=== PATIENT | female | born 1970 | race American Indian/Alaskan Native ===

== ENCOUNTER 2016-07-13 14:03 | Inpatient (IN) | payer SELFPAY ==
[2016-07-13 15:52] LABS: Bilirubin,Urine NEG (Negative); Blood,Urine SM (Negative); Ketones,Urine 80 mg/dL (Negative); Leukocyte Esterase,Urine NEG (Negative); Nitrite,Urine NEG (Negative); Urobilinogen,Urine < 2.0 mg/dL (<2.0)
[2016-07-13 16:03] LABS: Protein,Urine >500 mg/dL (Negative); Trichomonas,Urine Present /HPF
[2016-07-13 16:18] LABS: Basophils % (Auto) 0.2 % (0.0-1.8); Hematocrit 44.7 % (30.3-42.9); Hemoglobin 15.2 gm/dl (10.1-14.3); Mean Corpuscular HGB Conc 34 % (30-34); Mean Corpuscular Hemoglobin 34 pg (28-32); Mean Corpuscular Volume 101 fl (79-97); Platelet Count 252 K/mm3 (140-440); Red Blood Count 4.44 M/mm3 (3.65-5.03); Red Cell Distribution Width 15.9 % (13.2-15.2); White Blood Count 7.2 K/mm3 (4.5-11.0)
[2016-07-13 16:41] LABS: Alanine Aminotransferase 64 units/L (7-56); Alkaline Phosphatase 90 units/L (35-129); Blood Urea Nitrogen 9 mg/dL (7-17); Calcium 9.7 mg/dL (8.4-10.2); Carbon Dioxide 21 mmol/L (22-30); Glucose 264 mg/dL (65-100); Total Protein 8.9 g/dL (6.3-8.2)
[2016-07-13 16:42] LABS: Anion Gap 28 mmol/L; Chloride 92.2 mmol/L (98-107); Potassium 4.2 mmol/L (3.6-5.0); Sodium 137 mmol/L (137-145)
[2016-07-13 19:23] LABS: Albumin 4.8 g/dL (3.9-5); Albumin/Globulin Ratio 1.2 %
[2016-07-13 20:00] LABS: Lipase 781 units/L (13-60)
[2016-07-13] MEDS ORDERED: ZOFRAN IV ONE (22:37)
[2016-07-13] MEDS ORDERED: NACL 0.9% 1000 ML 1,000 ML IV ONE (22:37)
[2016-07-13] MEDS ORDERED: DILAUDID IV ONE (22:38)
--- NOTE | 2016-07-13 22:39 | Emergency Department Report ---
ED Abdominal Pain HPI - General Chief Complaint: Abdominal Pain Stated Complaint: ABD PAIN Time Seen by Provider: 07/13/16 22:36 Source: patient Mode of arrival: Ambulatory Limitations: No Limitations - History of Present Illness Initial Comments: This is a pleasant 46-year-old female who endorses a three-day history of upper abdominal pain that radiates to her back. She did have nausea vomiting associated with this as well. She has had some loose stools over the last 3 days but this has not been a major problem. She has had anorexia associated with this as well. She denies having similar pains in the past. Patient does endorse alcohol daily. 5. She also endorses history of cholecystectomy 2 years ago due to gallbladders tones. She denies any fevers or weakness associated with this. She has had difficulty sleeping due to the pain. She has not noted anything that really makes her pain better or worse. - Related Data Home Medications Medication Instructions Recorded Confirmed Last Taken Unobtainable 07/14/16 07/14/16 Unknown Allergies Allergy/AdvReac Type Severity Reaction Status Date / Time No Known Allergies Allergy Unverified 12/27/12 11:46 ED Review of Systems ROS: Stated complaint: ABD PAIN Other details as noted in HPI Comment: All other systems reviewed and negative Constitutional: denies: chills, fever Eyes: denies: eye pain, eye discharge, vision change ENT: denies: ear pain, throat pain Respiratory: denies: cough, shortness of breath, wheezing Cardiovascular: denies: chest pain, palpitations Endocrine: no symptoms reported Gastrointestinal: abdominal pain, nausea, vomiting. denies: diarrhea Genitourinary: denies: urgency, dysuria, discharge Musculoskeletal: denies: back pain, joint swelling, arthralgia Skin: denies: rash, lesions Neurological: denies: headache, weakness, paresthesias Psychiatric: denies: anxiety, depression Hematological/Lymphatic: denies: easy bleeding, easy bruising ED Past Medical Hx - Past Medical History Hx Hypertension: Yes Hx Diabetes: Yes (NIDDM) Additional medical history: thyroid - Surgical History Hx Cholecystectomy: Yes Additional Surgical History: ovarian cyst - Social History Smoking Status: Current Every Day Smoker Substance Use Type: Alcohol - Medications Home Medications: Home Medications Medication Instructions Recorded Confirmed Last Taken Type Unobtainable 07/14/16 07/14/16 Unknown History ED Physical Exam - General Limitations: No Limitations General appearance: alert, in distress (due to pain) - Head Head exam: Present: atraumatic, normocephalic - Eye Eye exam: Present: normal appearance, EOMI. Absent: scleral icterus - ENT ENT exam: Present: normal exam, normal orophraynx, mucous membranes moist - Neck Neck exam: Present: normal inspection, full ROM. Absent: meningismus, lymphadenopathy - Respiratory Respiratory exam: Present: normal lung sounds bilaterally. Absent: respiratory distress, wheezes, rales - Cardiovascular Cardiovascular Exam: Present: regular rate, normal rhythm. Absent: systolic murmur, diastolic murmur, rubs, gallop - GI/Abdominal GI/Abdominal exam: Present: soft, tenderness (upper abdomen specifically in the epigastric region.), guarding (mild epigastric), normal bowel sounds. Absent: organomegaly, pulsatile mass - Extremities Exam Extremities exam: Present: normal inspection, other (equal distal pedal pulses bilaterally). Absent: tenderness, pedal edema, calf tenderness - Back Exam Back exam: Present: normal inspection. Absent: tenderness, CVA tenderness (R), CVA tenderness (L) - Neurological Exam Neurological exam: Present: alert, oriented X3 - Psychiatric Psychiatric exam: Present: normal affect, normal mood - Skin Skin exam: Present: warm, dry, intact, normal color. Absent: rash ED Course Vital Signs 07/13/16 07/13/16 07/14/16 14:29 22:54 01:10 Temperature 98.4 F Pulse Rate 112 H 82 100 H Respiratory 20 16 16 Rate Blood Pressure 164/103 Blood Pressure 154/102 169/117 [Left] O2 Sat by Pulse 99 98 Oximetry 07/14/16 01:37 Temperature Pulse Rate Respiratory 16 Rate Blood Pressure Blood Pressure 158/95 [Left] O2 Sat by Pulse Oximetry - Reevaluation(s) Reevaluation #1: 07/14/16 06:00 Lab studies are noted with elevated lipase. LFTs have some mild elevation as well. Bilirubin is normal however. Based on the history since I suspect pancreatitis of alcohol origin. I suspect that her uriel lipase was likely 2 days ago. I feel that she is likely cooling down at this point. I did suggest that she stay in the hospital for nothing by mouth and continued observation. Her abdomen is tender but nonsurgical for me here at a low suspicion for concerning pathology and did not order CT is study at this time. I did speak with Dr. Nathan from hospitalist service for admission. He was agreeable with this plan. She was given IV fluids here as well as pain and nausea medication. She did have significant improvement with these interventions. ED Medical Decision Making - Lab Data Result diagrams: 07/13/16 16:06 07/13/16 16:06 Critical care attestation.: If time is entered above; I have spent that time in minutes in the direct care of this critically ill patient, excluding procedure time. ED Disposition Clinical Impression: Pancreatitis, alcoholic, acute Qualifiers: Acute pancreatitis complication: unspecified Qualified Code(s): K85.20 - Alcohol induced acute pancreatitis without necrosis or infection Disposition: OP ADMITTED IP TO THIS HOSP Is pt being admited?: Yes Does the pt Need Aspirin: No Condition: Stable Time of Disposition: 01:08
[2016-07-14] MEDS ORDERED: APRESOLINE IV PRN (02:47)
[2016-07-14] MEDS ORDERED: ZOFRAN IV PRN (02:47)
--- NOTE | 2016-07-14 02:52 | History and Physical Report ---
History of Present Illness Date of examination: 07/14/16 Chief complaint: Abdominal pain History of present illness: Patient is a 46-year-old woman with history of cholecystectomy, tobacco dependency, alcohol abuse, type 2 diabetes mellitus and hypertension who presents with sudden onset of acute sharp epigastric abdominal pain radiating to the back times x 3 days ago associated with nausea, vomiting and diarrhea. Her last alcoholic drink was 3 days ago, she couldn't hold anything down. She usually drinks a pint of vodka a day. Past History Past Medical History: other (as hpi) Past Surgical History: cholecystectomy, bowel surgery Social history: smoking, alcohol abuse, full code. denies: prescription drug abuse, IV drug use Family history: diabetes (father), hypertension (mother) Medications and Allergies Allergies Allergy/AdvReac Type Severity Reaction Status Date / Time No Known Allergies Allergy Unverified 12/27/12 11:46 Home Medications Medication Instructions Recorded Confirmed Last Taken Type Unobtainable 07/14/16 07/14/16 Unknown History Active Meds: Active Medications Heparin Sodium (Porcine) (Heparin) 5,000 unit SUB-Q Q12HR TIM Review of Systems All systems: negative (as HPI and all other ROS reviewed and negative.) Exam - Physical Exam Narrative exam: GEN: WDWN, NAD, AWAKE, ALERT, ORIENTATED 3 HEENT: NCAT, PERRL, EOMI, OP CLEAR NECK: SUPPLE, NO THYROMEGALY, NO JVD, NO LAD CVS: Regular tachycardia, NORMAL S1S2 LUNGS/CHEST: CTA B, NORMAL CHEST EXPANSION B, GOOD AIR ENTRY B ABD: SOFT, EPIGASTRIC TENDERNESS WITHOUT DISTENTION GBS, NO REBOUND OR GUARDING EXT/SKIN: NO SIGNIFICANT EDEMA OR RASH MSK: FROM X 4 EXTREMITIES NEURO: CN 2-12 GROSSLY INTACT, NO new FOCAL DEFICITS PSY: CALM - Constitutional Vitals: Temp Pulse Resp BP Pulse Ox 98.4 F 100 H 16 158/95 98 07/13/16 14:29 07/14/16 01:10 07/14/16 01:37 07/14/16 01:37 07/13/16 22:54 Results - Labs CBC & Chem 7: 07/13/16 16:06 07/13/16 16:06 Labs: Abnormal lab results 07/13/16 07/13/16 07/13/16 Range/Units 14:50 16:06 16:06 Hgb 15.2 H (10.1-14.3) gm/dl Hct 44.7 H (30.3-42.9) % MCV 101 H (79-97) fl MCH 34 H (28-32) pg RDW 15.9 H (13.2-15.2) % Lymph % (Auto) 6.0 L (13.4-35.0) % [place] % (Auto) 7.4 H (0.0-7.3) % Lymph # 0.4 L (1.2-5.4) K/mm3 Seg Neutrophils % 86.4 H (40.0-70.0) % Chloride 92.2 L (98-107) mmol/L Carbon Dioxide 21 L (22-30) mmol/L Creatinine 0.5 L (0.7-1.2) mg/dL Glucose 264 H (65-100) mg/dL AST 70 H (5-40) units/L ALT 64 H (7-56) units/L Total Protein 8.9 H (6.3-8.2) g/dL Lipase 781 H (13-60) units/L Urine WBC (Auto) 10.0 H (0.0-6.0) /HPF U Epithel Cells (Auto) 15.0 H (0-13.0) /HPF Assessment and Plan Patient is a 46-year-old woman with history of cholecystectomy, tobacco dependency, alcohol abuse, type 2 diabetes mellitus and hypertension who presents with sudden onset of acute sharp epigastric abdominal pain radiating to the back times x 3 days ago associated with nausea, vomiting and diarrhea. Her last alcoholic drink was 3 days ago, she couldn't hold anything down. She usually drinks a pint of vodka a day. -Acute alcohol pancreatitis: bowel rest, ivf, pain med, ciwa, thiamine -Accelerated hypertension: iv hydralazine prn -NIDDM: ssi -Urine trichomonas: flagyl po x 1 when she tolerate po intake -dvt prophylaxis: sc heparin
[2016-07-14] MEDS ORDERED: ATIVAN IV PRN ×3 (02:57)
[2016-07-14] MEDS ORDERED: D50W (25GM) IV PRN (02:57)
[2016-07-14] MEDS ORDERED: FLAGYL PO ONE (03:01)
[2016-07-14] MEDS ORDERED: FLAGYL ONE (03:46)
[2016-07-14] MEDS: MORPHINE IV PRN ×2 (04:51→09:13)
[2016-07-14] MEDS: HEPARIN SUB-Q SCH ×2 (09:12→22:00)
[2016-07-14] MEDS: PROTONIX IV SCH (09:15)
--- NOTE | 2016-07-14 11:57 | Progress Note ---
Assessment and Plan Assessment and plan: 1. Acute alcohol-induced pancreatitis. Continue bowel rest. Advance diet slowly with clear liquids today. Continue IV fluid hydration. Pain control. Continue to follow serial lipase levels. 2. EtOH abuse. Continue CIWA protocol. Patient has been counseled on alcohol cessation. 3. Accelerated hypertension. Continue antihypertensives medications. Continue IV hydralazine when necessary. 4. Diabetes mellitus type 2. Continue Accu-Cheks and sliding scale. 5. Urine Trichomonas. Patient will receive Flagyl by mouth 1 when she can tolerate by mouth intake. 6. DVT prophylaxis. Continue heparin. History Interval history: 46-year-old female admitted with abdominal pain secondary to alcohol-induced pancreatitis. No new issues overnight. Hospitalist Physical - Constitutional Vitals: Temp Pulse Resp BP Pulse Ox 98.2 F 95 H 18 170/100 100 07/14/16 08:30 07/14/16 09:14 07/14/16 08:30 07/14/16 09:14 07/14/16 08:30 General appearance: Present: no acute distress, well-nourished - EENT Eyes: Present: PERRL, EOM intact ENT: hearing intact, clear oral mucosa, dentition normal - Neck Neck: Present: supple, normal ROM - Respiratory Respiratory effort: normal Respiratory: bilateral: CTA - Cardiovascular Rhythm: regular Heart Sounds: Present: S1 & S2. Absent: gallop, rub - Extremities Extremities: no ischemia, No edema, Full ROM - Abdominal General gastrointestinal: soft, tender, non-distended, normal bowel sounds Localized gastrointestinal: tender: epigastric periumbilical (mild) - Integumentary Integumentary: Present: clear, warm, dry - Neurologic Neurologic: CNII-XII intact, moves all extremities Results - Labs CBC & Chem 7: 07/13/16 16:06 07/13/16 16:06 Labs: Laboratory Last Values WBC 7.2 K/mm3 (4.5-11.0) 07/13/16 16:06 RBC 4.44 M/mm3 (3.65-5.03) 07/13/16 16:06 Hgb 15.2 gm/dl (10.1-14.3) H 07/13/16 16:06 Hct 44.7 % (30.3-42.9) H 07/13/16 16:06 MCV 101 fl (79-97) H 07/13/16 16:06 MCH 34 pg (28-32) H 07/13/16 16:06 MCHC 34 % (30-34) 07/13/16 16:06 RDW 15.9 % (13.2-15.2) H 07/13/16 16:06 Plt Count 252 K/mm3 (140-440) 07/13/16 16:06 Lymph % (Auto) 6.0 % (13.4-35.0) L 07/13/16 16:06 [place] % (Auto) 7.4 % (0.0-7.3) H 07/13/16 16:06 Eos % (Auto) 0.0 % (0.0-4.3) 07/13/16 16:06 Baso % (Auto) 0.2 % (0.0-1.8) 07/13/16 16:06 Lymph # 0.4 K/mm3 (1.2-5.4) L 07/13/16 16:06 [place] # 0.5 K/mm3 (0.0-0.8) 07/13/16 16:06 Eos # 0.0 K/mm3 (0.0-0.4) 07/13/16 16:06 Baso # 0.0 K/mm3 (0.0-0.1) 07/13/16 16:06 Seg Neutrophils % 86.4 % (40.0-70.0) H 07/13/16 16:06 Seg Neutrophils # 6.2 K/mm3 (1.8-7.7) 07/13/16 16:06 Sodium 137 mmol/L (137-145) 07/13/16 16:06 Potassium 4.2 mmol/L (3.6-5.0) 07/13/16 16:06 Chloride 92.2 mmol/L (98-107) L 07/13/16 16:06 Carbon Dioxide 21 mmol/L (22-30) L 07/13/16 16:06 Anion Gap 28 mmol/L 07/13/16 16:06 BUN 9 mg/dL (7-17) 07/13/16 16:06 Creatinine 0.5 mg/dL (0.7-1.2) L 07/13/16 16:06 Estimated GFR > 60 ml/min 07/13/16 16:06 BUN/Creatinine Ratio 18.00 % 07/13/16 16:06 Glucose 264 mg/dL (65-100) H 07/13/16 16:06 POC Glucose 195 (70-105) H 07/14/16 06:27 Calcium 9.7 mg/dL (8.4-10.2) 07/13/16 16:06 Total Bilirubin 1.0 mg/dL (0.1-1.2) 07/13/16 16:06 AST 70 units/L (5-40) H 07/13/16 16:06 ALT 64 units/L (7-56) H 07/13/16 16:06 Alkaline Phosphatase 90 units/L (35-129) 07/13/16 16:06 Total Protein 8.9 g/dL (6.3-8.2) H 07/13/16 16:06 Albumin 4.8 g/dL (3.9-5) 07/13/16 16:06 Albumin/Globulin Ratio 1.2 % 07/13/16 16:06 Lipase 781 units/L (13-60) H 07/13/16 16:06 Urine Color Yellow (Yellow) 07/13/16 14:50 Urine Turbidity Clear (Clear) 07/13/16 14:50 Urine pH 5.0 (5.0-7.0) 07/13/16 14:50 Urine Protein >500 mg/dL (Negative) 07/13/16 14:50 Urine Glucose (UA) >=500 mg/dL (Negative) 07/13/16 14:50 Urine Ketones 80 mg/dL (Negative) 07/13/16 14:50 Urine Blood Sm (Negative) 07/13/16 14:50 Urine Nitrite Neg (Negative) 07/13/16 14:50 Ur Reducing Substances Not Reportable 07/13/16 14:50 Urine Bilirubin Neg (Negative) 07/13/16 14:50 Urine Ictotest Not Reportable 07/13/16 14:50 Urine Urobilinogen < 2.0 mg/dL (<2.0) 07/13/16 14:50 Ur Leukocyte Esterase Neg (Negative) 07/13/16 14:50 Urine WBC (Auto) 10.0 /HPF (0.0-6.0) H 07/13/16 14:50 Urine RBC (Auto) 8.0 /HPF (0.0-6.0) 07/13/16 14:50 U Epithel Cells (Auto) 15.0 /HPF (0-13.0) H 07/13/16 14:50 Urine Trichomonas Present /HPF 07/13/16 14:50 Urine HCG, Qual Negative (Negative) 07/13/16 14:50
[2016-07-14] MEDS: NOVOLOG SUB-Q SCH ×2 (12:06→17:45)
[2016-07-14] MEDS: VITAMIN B-1 100 MG in NACL 0.9% 50 ML IV SCH (12:10)
--- NOTE | 2016-07-15 00:27 | Admit Criteria Form ---
Admission Criteria Documentation: PANCREATITIS Clinical Indications for Admission to Inpatient Care (Place 'X' for any and all applicable criteria): Admission is indicated for 1 or more of the following (1)(2)(3)(4): [ ]I. Acute pancreatitis[A] as indicated by 2 or MORE of the following: [ ]a) Abdominal pain (eg, epigastric, left upper quadrant) [ ]b) Serum amylase or serum lipase greater than 3 times the upper limit of normal [ ]c) Characteristic findings from abdominal imaging (eg, pancreatic inflammation, pancreatic necrosis, peripancreatic fluid collection)[B] [X ]II. Pancreatitis (acute or chronic ) requiring inpatient care as indicated by 1 or more of the following [ ]a) Inability to maintain oral hydration Hypoxemia [ ]b) Evidence of infection (eg, fever, peripancreatic abscess) [X ]c) Severe pain requiring acute inpatient management [ ]d) Hemodynamic instability [ ]e) Hypoxemia [ ]f) Acute renal failure [ ]g) Severe electrolyte abnormalities Extended stay beyond goal length of stay may be needed for (1)(11) [ ]a) Severe acute pancreatitis (10)(19) [ ]b) Persistent symptoms, ascites, or pleural effusion [ ]c) Abdominal compartment syndrome (10) [ ]d) Late complications [ ]e) Gallstones in gallbladder [ ]f) Acute renal failure (27) The original [employer] content created by [employer] has been revised. The portions of the content which have been revised are identified through the use of italic text or in bold,and [employer] has neither reviewed nor approved the modified material.All other unmodified content is copyright [facility] Please see references footnoted in the original [facility] edition 2016 Admission Criteria Met: Yes
[2016-07-15] MEDS: MORPHINE IV PRN ×4 (00:45→23:31)
[2016-07-15 05:35] LABS: Basophils % (Auto) 0.4 % (0.0-1.8); Eosinophils % (Auto) 0.7 % (0.0-4.3); Hematocrit 36.6 % (30.3-42.9); Mean Corpuscular HGB Conc 33 % (30-34); Mean Corpuscular Hemoglobin 34 pg (28-32); Mean Corpuscular Volume 103 fl (79-97); Platelet Count 188 K/mm3 (140-440); Red Blood Count 3.56 M/mm3 (3.65-5.03); Red Cell Distribution Width 16.3 % (13.2-15.2)
[2016-07-15 05:57] LABS: Alanine Aminotransferase 36 units/L (7-56); Albumin 3.4 g/dL (3.9-5); Alkaline Phosphatase 63 units/L (35-129); Anion Gap 21 mmol/L; Bilirubin,Total 0.7 mg/dL (0.1-1.2); Blood Urea Nitrogen 6 mg/dL (7-17); Calcium 8.8 mg/dL (8.4-10.2); Carbon Dioxide 21 mmol/L (22-30); Chloride 100.3 mmol/L (98-107); Glucose 97 mg/dL (65-100); Lipase 136 units/L (13-60); Potassium 3.6 mmol/L (3.6-5.0); Sodium 139 mmol/L (137-145); Total Protein 6.8 g/dL (6.3-8.2)
[2016-07-15] MEDS: NOVOLOG SUB-Q SCH ×4 (06:00→18:52)
[2016-07-15] MEDS: NACL 0.9% 1000 ML 1,000 ML IV SCH ×2 (07:41→18:08)
[2016-07-15] MEDS: VITAMIN B-1 100 MG in NACL 0.9% 50 ML IV SCH (10:00)
--- NOTE | 2016-07-15 10:01 | Progress Note ---
Assessment and Plan Assessment and plan: 1. Acute alcohol-induced pancreatitis. Continue bowel rest. Advance diet slowly starting with clear liquids then to full. Continue IV fluid hydration. Pain control. Continue to follow serial lipase levels. If patient tolerates diet, anticipate discharge in a.m. 2. EtOH abuse. Continue CIWA protocol. Patient has been counseled on alcohol cessation. 3. Accelerated hypertension. Add labetalol. Continue IV hydralazine when necessary. 4. Diabetes mellitus type 2. Continue Accu-Cheks and sliding scale. 5. Urine Trichomonas. Patient will receive Flagyl by mouth 1 when she can tolerate by mouth intake. 6. DVT prophylaxis. Continue heparin. History Interval history: 46-year-old female admitted with abdominal pain secondary to alcohol-induced pancreatitis. No new issues overnight. Hospitalist Physical - Constitutional Vitals: Temp Pulse Resp BP Pulse Ox 98 F 95 H 20 179/100 100 07/15/16 07:30 07/15/16 07:30 07/15/16 08:40 07/15/16 07:30 07/15/16 07:30 General appearance: Present: no acute distress, well-nourished - EENT Eyes: Present: PERRL, EOM intact ENT: hearing intact, clear oral mucosa, dentition normal - Neck Neck: Present: supple, normal ROM - Respiratory Respiratory effort: normal Respiratory: bilateral: CTA - Cardiovascular Rhythm: regular Heart Sounds: Present: S1 & S2. Absent: gallop, rub - Extremities Extremities: no ischemia, No edema, Full ROM - Abdominal General gastrointestinal: soft, non-tender, non-distended, normal bowel sounds - Integumentary Integumentary: Present: clear, warm, dry - Neurologic Neurologic: CNII-XII intact, moves all extremities Results - Labs CBC & Chem 7: 07/15/16 04:45 07/15/16 04:45 Labs: Laboratory Last Values WBC 6.0 K/mm3 (4.5-11.0) 07/15/16 04:45 RBC 3.56 M/mm3 (3.65-5.03) L 07/15/16 04:45 Hgb 12.0 gm/dl (10.1-14.3) D 07/15/16 04:45 Hct 36.6 % (30.3-42.9) D 07/15/16 04:45 MCV 103 fl (79-97) H 07/15/16 04:45 MCH 34 pg (28-32) H 07/15/16 04:45 MCHC 33 % (30-34) 07/15/16 04:45 RDW 16.3 % (13.2-15.2) H 07/15/16 04:45 Plt Count 188 K/mm3 (140-440) 07/15/16 04:45 Lymph % (Auto) 24.3 % (13.4-35.0) 07/15/16 04:45 [place] % (Auto) 14.5 % (0.0-7.3) H 07/15/16 04:45 Eos % (Auto) 0.7 % (0.0-4.3) 07/15/16 04:45 Baso % (Auto) 0.4 % (0.0-1.8) 07/15/16 04:45 Lymph # 1.5 K/mm3 (1.2-5.4) 07/15/16 04:45 [place] # 0.9 K/mm3 (0.0-0.8) H 07/15/16 04:45 Eos # 0.0 K/mm3 (0.0-0.4) 07/15/16 04:45 Baso # 0.0 K/mm3 (0.0-0.1) 07/15/16 04:45 Seg Neutrophils % 60.1 % (40.0-70.0) 07/15/16 04:45 Seg Neutrophils # 3.6 K/mm3 (1.8-7.7) 07/15/16 04:45 Sodium 139 mmol/L (137-145) 07/15/16 04:45 Potassium 3.6 mmol/L (3.6-5.0) 07/15/16 04:45 Chloride 100.3 mmol/L (98-107) 07/15/16 04:45 Carbon Dioxide 21 mmol/L (22-30) L 07/15/16 04:45 Anion Gap 21 mmol/L 07/15/16 04:45 BUN 6 mg/dL (7-17) L 07/15/16 04:45 Creatinine 0.4 mg/dL (0.7-1.2) L 07/15/16 04:45 Estimated GFR > 60 ml/min 07/15/16 04:45 BUN/Creatinine Ratio 15.00 % 07/15/16 04:45 Glucose 97 mg/dL (65-100) 07/15/16 04:45 POC Glucose 94 (70-105) 07/15/16 06:26 Calcium 8.8 mg/dL (8.4-10.2) 07/15/16 04:45 Total Bilirubin 0.7 mg/dL (0.1-1.2) 07/15/16 04:45 AST 46 units/L (5-40) H 07/15/16 04:45 ALT 36 units/L (7-56) 07/15/16 04:45 Alkaline Phosphatase 63 units/L (35-129) 07/15/16 04:45 Total Protein 6.8 g/dL (6.3-8.2) D 07/15/16 04:45 Albumin 3.4 g/dL (3.9-5) L 07/15/16 04:45 Albumin/Globulin Ratio 1.0 % 07/15/16 04:45 Lipase 136 units/L (13-60) H 07/15/16 04:45 Urine Color Yellow (Yellow) 07/13/16 14:50 Urine Turbidity Clear (Clear) 07/13/16 14:50 Urine pH 5.0 (5.0-7.0) 07/13/16 14:50 Urine Protein >500 mg/dL (Negative) 07/13/16 14:50 Urine Glucose (UA) >=500 mg/dL (Negative) 07/13/16 14:50 Urine Ketones 80 mg/dL (Negative) 07/13/16 14:50 Urine Blood Sm (Negative) 07/13/16 14:50 Urine Nitrite Neg (Negative) 07/13/16 14:50 Ur Reducing Substances Not Reportable 07/13/16 14:50 Urine Bilirubin Neg (Negative) 07/13/16 14:50 Urine Ictotest Not Reportable 07/13/16 14:50 Urine Urobilinogen < 2.0 mg/dL (<2.0) 07/13/16 14:50 Ur Leukocyte Esterase Neg (Negative) 07/13/16 14:50 Urine WBC (Auto) 10.0 /HPF (0.0-6.0) H 07/13/16 14:50 Urine RBC (Auto) 8.0 /HPF (0.0-6.0) 07/13/16 14:50 U Epithel Cells (Auto) 15.0 /HPF (0-13.0) H 07/13/16 14:50 Urine Trichomonas Present /HPF 07/13/16 14:50 Urine HCG, Qual Negative (Negative) 07/13/16 14:50
[2016-07-15] MEDS: PROTONIX IV SCH (10:10)
[2016-07-15] MEDS: HEPARIN SUB-Q SCH ×2 (10:11→23:43)
[2016-07-15] MEDS: NORMODYNE PO SCH ×2 (10:12→23:40)
[2016-07-15] MEDS: PROTONIX PO SCH (10:14)
[2016-07-15] MEDS ORDERED: VITAMIN B-1 100 MG in NACL 0.9% 50 ML IV SCH (20:00)
[2016-07-16] MEDS: NOVOLOG SUB-Q SCH ×2 (01:30→06:36)
[2016-07-16] MEDS: NACL 0.9% 1000 ML 1,000 ML IV SCH (06:36)
[2016-07-16 08:03] VITALS: BP 150/92
--- NOTE | 2016-07-16 08:19 | Discharge Summary ---
Providers - Providers Date of Admission: 07/14/16 02:46 Date of discharge: 07/16/16 Attending physician: GAVINO CEJA Primary care physician: FUEL CELL TECHNICIAN Hospitalization Reason for admission: pancreatitis Condition: Stable Hospital course: Patient is a 46-year-old woman with history of cholecystectomy, tobacco dependency, alcohol abuse, type 2 diabetes mellitus and hypertension who presented with sudden onset of acute sharp epigastric abdominal pain radiating to the back times x 3 days ago associated with nausea, vomiting and diarrhea. Her last alcoholic drink was 3 days prior to admission. She usually drinks a pint of vodka a day. Patient was admitted with a diagnosis of alcohol-induced acute pancreatitis. Patient was placed on bowel rest and given supportive care with IV fluids and pain control. Patient's lipase was elevated at 781 and decreased to a near-normal range of 136 at the time of discharge. Patient's diet was advanced which she tolerated. Patient was counseled on alcohol cessation. Patient was felt to have received the maximal hospital benefit for discharge. Indicated discharge time 31 minutes. Disposition: DISCHARGED TO HOME OR SELFCARE Time spent for discharge: 31 Core Measure Documentation - Palliative Care Palliative Care/ Comfort Measures: Not Applicable - Core Measures Any of the following diagnoses?: none Exam - Constitutional Vitals: Temp Pulse Resp BP Pulse Ox 97.5 F L 92 H 16 150/92 99 07/16/16 07:30 07/16/16 07:30 07/16/16 07:30 07/16/16 07:30 07/16/16 07:30 General appearance: Present: no acute distress, well-nourished - EENT Eyes: Present: PERRL ENT: hearing intact, clear oral mucosa - Neck Neck: Present: supple, normal ROM - Respiratory Respiratory effort: normal Respiratory: bilateral: CTA - Cardiovascular Heart Sounds: Present: S1 & S2. Absent: rub, click - Extremities Extremities: pulses symmetrical, No edema Peripheral Pulses: within normal limits - Abdominal General gastrointestinal: Present: soft, non-tender, non-distended, normal bowel sounds Female genitourinary: Present: normal - Integumentary Integumentary: Present: clear, warm, dry - Musculoskeletal Musculoskeletal: gait normal, strength equal bilaterally - Psychiatric Psychiatric: appropriate mood/affect, intact judgment & insight - Neurologic Neurologic: CNII-XII intact, moves all extremities Plan Activity: no restrictions Weight Bearing Status: Full Weight Bearing Diet: regular Follow up with: PRIMARY CARE, [Primary Care Provider] - 3-5 Days Prescriptions: Labetalol [Normodyne TAB] 200 mg PO BID #60 tablet metFORMIN [Glucophage] 500 mg PO BID #60 tablet oxyCODONE /ACETAMINOPHEN [Percocet 5/325] 1 tab PO Q4HR #15 tab Pantoprazole [Protonix TAB] 40 mg PO DAILY #30 tablet
[2016-07-16] MEDS: HEPARIN SUB-Q SCH (09:05)
[2016-07-16] MEDS: PROTONIX PO SCH (09:05)
[2016-07-16] MEDS: NORMODYNE PO SCH (09:05)
[2016-07-18] MEDS ORDERED: VITAMIN B-1 PO SCH (10:00)
== END 2016-07-16 11:40 | disposition home or self-care (01) | DRG 440 ==
LOC: ED 14:03 → 3A 07-14 02:46
PROVIDERS: ADMIT Internal Medicine; ATTEND Hospitalist
DX: K85.20 Alcohol induced acute pancreatitis without necrosis or infection (principal); F10.10 Alcohol abuse, uncomplicated; E11.9 Type 2 diabetes mellitus without complications; I10 Essential (primary) hypertension; F17.210 Nicotine dependence, cigarettes, uncomplicated; Z71.41 Alcohol abuse counseling and surveillance of alcoholic; Z90.49 Acquired absence of other specified parts of digestive tract; Z83.3 Family history of diabetes mellitus; Z82.49 Family history of ischemic heart disease and other diseases of the circulatory system
CPT/HCPCS: 36415; 80048; 80053; 81001; 81025; 82962; 83690; 85025; 85027; 96374; 96375; 96376; C9113; J0360; J1170; J1644; J1815; J2270; J2405; J3411; J7030

== ENCOUNTER 2017-06-10 19:28 | Emergency (ER) | payer SELFPAY ==
[2017-06-10] MEDS ORDERED: ASPIRIN PO ONE (19:50)
[2017-06-10 20:25] LABS: Basophils # (Auto) 0.1 K/mm3 (0.0-0.1); Basophils % (Auto) 1.4 % (0.0-1.8); Eosinophils # (Auto) 0.1 K/mm3 (0.0-0.4); Eosinophils % (Auto) 1.4 % (0.0-4.3); Hematocrit 35.6 % (30.3-42.9); Hemoglobin 12.3 gm/dl (10.1-14.3); Lymphocytes # (Auto) 2.2 K/mm3 (1.2-5.4); Lymphocytes % (Auto) 46.4 % (13.4-35.0); Mean Corpuscular HGB Conc 35 % (30-34); Mean Corpuscular Hemoglobin 35 pg (28-32); Mean Corpuscular Volume 100 fl (79-97); Monocytes # (Auto) 0.4 K/mm3 (0.0-0.8); Monocytes % (Auto) 9.3 % (0.0-7.3); Platelet Count 235 K/mm3 (140-440); Red Blood Count 3.55 M/mm3 (3.65-5.03)
[2017-06-10 20:32] LABS: BUN/Creatinine Ratio 17; Blood Urea Nitrogen 10 mg/dL (7-17); Calcium 8.7 mg/dL (8.4-10.2); Hemolysis Index 4
--- NOTE | 2017-06-10 22:05 | XRay Report ---
FINAL REPORT PROCEDURE: XR CHEST ROUTINE 2V TECHNIQUE: PA and lateral chest radiographs were obtained. CPT 39304 HISTORY: Chest pain COMPARISON: No prior studies are available for comparison. FINDINGS: Heart: Normal. Mediastinum/Vessels: Normal. Lungs/Pleural space: No infiltrate, effusion, or pneumothorax. Bony thorax: No acute osseous abnormality. Other: IMPRESSION: No radiographic evidence of acute abnormality.
--- NOTE | 2017-06-11 03:03 | Emergency Department Report ---
HPI - General Chief Complaint: Chest Pain Time Seen by Provider: 06/11/17 02:45 - HPI HPI: Room 1 The patient is a 47-year-old female presented with a chief complaint of chest pain. The patient states for the past 4 days she's had intermittent substernal chest pain radiated into her back described as squeezing in nature. Patient missed and nausea but denies vomiting, shortness of breath or diaphoresis with her chest pain. The patient states her pain is currently a 7/10. The patient states she's never had a stress test or cardiac catheterization Location: Chest Duration: Intermittent 4 days Quality: Squeezing Severity: 10/15 Modifying factors: [see above] Context: [see above] Mode of transportation: [not driving] ED Past Medical Hx - Past Medical History Previous Medical History?: Yes Hx Hypertension: Yes Hx Diabetes: Yes (NIDDM) Additional medical history: hypothyroid - Surgical History Past Surgical History?: Yes Hx Cholecystectomy: Yes Additional Surgical History: ovarian cyst - Family History Family history: no significant - Social History Smoking Status: Current Every Day Smoker (1/2 pack per day) Substance Use Type: Alcohol (moderate), Marijuana - Medications Home Medications: Home Medications Medication Instructions Recorded Confirmed Last Taken Type Labetalol [Normodyne TAB] 200 mg PO BID #60 tablet 07/16/16 Unknown Rx Pantoprazole [Protonix TAB] 40 mg PO DAILY #30 tablet 07/16/16 Unknown Rx metFORMIN [Glucophage] 500 mg PO BID #60 tablet 07/16/16 Unknown Rx oxyCODONE /ACETAMINOPHEN [Percocet 1 tab PO Q4HR #15 tab 07/16/16 Unknown Rx 5/325] ED Review of Systems ROS: Stated complaint: CHEST PAIN,VAGINAL LUMP Other details as noted in HPI Constitutional: denies: diaphoresis Respiratory: denies: shortness of breath Cardiovascular: chest pain Gastrointestinal: nausea. denies: vomiting Physical Exam - Physical Exam Vital Signs: Vital Signs 06/10/17 06/10/17 06/11/17 19:47 19:51 02:05 Temperature 98.5 F 98.8 F Pulse Rate 91 H 74 78 Respiratory 17 18 Rate Blood Pressure 107/70 136/77 O2 Sat by Pulse 99 98 Oximetry Physical Exam: GENERAL: The patient is well-developed well-nourished female lying on stretcher not appearing to be in acute distress. [] HEENT: Normocephalic. Atraumatic. Extraocular motions are intact. Patient has moist mucous membranes. NECK: Supple. Trachea midline CHEST/LUNGS: Clear to auscultation. There is no respiratory distress noted. HEART/CARDIOVASCULAR: Regular. There is no tachycardia. There is no gallop rub or murmur. ABDOMEN: Abdomen is soft, nontender. Patient has normal bowel sounds. There is no abdominal distention. SKIN: There is no rash. There is no edema. There is no diaphoresis. NEURO: The patient is awake, alert, and oriented. The patient is cooperative. The patient has normal speech MUSCULOSKELETAL: There is no evidence of acute injury. ED Course Vital Signs 06/10/17 06/10/17 06/11/17 19:47 19:51 02:05 Temperature 98.5 F 98.8 F Pulse Rate 91 H 74 78 Respiratory 17 18 Rate Blood Pressure 107/70 136/77 O2 Sat by Pulse 99 98 Oximetry ED Medical Decision Making - Lab Data Result diagrams: 06/10/17 20:00 06/10/17 20:00 Laboratory Tests 06/10/17 06/10/17 06/10/17 20:00 20:00 20:00 WBC 4.8 RBC 3.55 L Hgb 12.3 Hct 35.6 MCV 100 H MCH 35 H MCHC 35 H RDW 16.0 H Plt Count 235 Lymph % (Auto) 46.4 H Gilliam % (Auto) 9.3 H Eos % (Auto) 1.4 Baso % (Auto) 1.4 Lymph # 2.2 Gilliam # 0.4 Eos # 0.1 Baso # 0.1 Seg Neutrophils % 41.5 Seg Neutrophils # 2.0 Sodium 138 Potassium 3.3 L Chloride 95.5 L Carbon Dioxide 25 Anion Gap 21 BUN 10 Creatinine 0.6 L Estimated GFR > 60 BUN/Creatinine Ratio 17 Glucose 148 H Calcium 8.7 Troponin T < 0.010 HCG, Qual Negative 06/10/17 23:12 WBC RBC Hgb Hct MCV MCH MCHC RDW Plt Count Lymph % (Auto) Gilliam % (Auto) Eos % (Auto) Baso % (Auto) Lymph # Gilliam # Eos # Baso # Seg Neutrophils % Seg Neutrophils # Sodium Potassium Chloride Carbon Dioxide Anion Gap BUN Creatinine Estimated GFR BUN/Creatinine Ratio Glucose Calcium Troponin T < 0.010 HCG, Qual - EKG Data -: EKG Interpreted by Me EKG shows normal: sinus rhythm Rate: normal - EKG Data When compared to previous EKG there are: previous EKG unavailable Interpretation: other (no ischemic changes seen) - Radiology Data Radiology results: report reviewed (chest x-ray), image reviewed (chest x-ray) interpreted by me: Chest x-ray-no focal infiltrates, no pneumothorax - Medical Decision Making I discussed with the patient at length my concerns for a cardiac cause of her chest pain. I explained that I am unable to rule out myocardial infarction at this time despite her lab work and EKG. Patient verbalized understanding of increased morbidity and/or mortality should she leave the hospital AGAINST MEDICAL ADVICE. Patient states she was still like to leave the hospital AGAINST MEDICAL ADVICE. Patient informed that should she change her mind at any time she should return to the emergency department - Differential Diagnosis ACS, GERD, pericarditis Critical care attestation.: If time is entered above; I have spent that time in minutes in the direct care of this critically ill patient, excluding procedure time. ED Disposition Clinical Impression: Chest pain Disposition: [id number] LEFT AGAINST MED ADVICE Is pt being admited?: No Does the pt Need Aspirin: Yes Condition: Undetermined Instructions: Chest Pain (ED) Additional Instructions: Return to the emergency department immediately should you develop worsening symptoms, fever, inability to tolerate food or liquid or any other concerns. Referrals: PRIMARY CARE, [Primary Care Provider] - 3-5 Days Time of Disposition: 03:06 (patient leaving AMA)
[2017-06-11] MEDS ORDERED: ASPIRIN ONE (03:06)
[2017-06-11 04:07] VITALS: BP 142/82
== END 2017-06-11 03:35 | disposition left against medical advice (07) ==
LOC: ED 19:28
DX: R07.89 Other chest pain (principal); I10 Essential (primary) hypertension; E11.9 Type 2 diabetes mellitus without complications; E03.9 Hypothyroidism, unspecified; Z90.49 Acquired absence of other specified parts of digestive tract; F17.200 Nicotine dependence, unspecified, uncomplicated
CPT/HCPCS: 36415; 71046; 80048; 84484; 84703; 85025; 93005; 93010; 99284

== ENCOUNTER 2017-09-22 21:47 | Emergency (ER) | payer SELFPAY ==
[2017-09-22 22:03] VITALS: BP 127/88
== END 2017-09-22 22:00 | disposition left against medical advice (07) ==
LOC: ED 21:47
DX: N76.0 Acute vaginitis (principal); Z53.21 Procedure and treatment not carried out due to patient leaving prior to being seen by health care provider